=== PATIENT | female | born 1970 | race Caucasian/White ===

== ENCOUNTER → 2016-06-11 | Outpatient (CLI) | payer MEDICARE | END | disposition home or self-care (01) | LOC: PTH.S 12:30 | DX: C50.919 Malignant neoplasm of unspecified site of unspecified female breast (principal); R18.8 Other ascites; Z98.890 Other specified postprocedural states ==

== ENCOUNTER 2016-07-10 10:33 | Day surgery (SDC) | payer MEDICARE ==
[~2016-07-10] VITALS: Ht 162.6 cm; Wt 74.2 kg
--- NOTE | 2016-07-15 11:26 | OR ---
ADMIT: 07/10/2016 RM/LOC: [facility] MR#: [id number] [address] [id number] SILVIO DOWELL [address] [place] [address] Operative/Delivery Room Report SEX: F AGE: 46 : 1970 SURGERY DATE: 07/10/2016 SURGEON: Zack Borjas MD PREOPERATIVE DIAGNOSIS: Intraabdominal mass, question related to the proximal jejunum. POSTOPERATIVE DIAGNOSIS: Normal upper endoscopy. PROCEDURE PERFORMED: EGD (Esophagogastroduodenoscopy). ANESTHESIA: Sedation. ESTIMATED BLOOD LOSS: None. DESCRIPTION OF PROCEDURE: After appropriate informed consent was obtained, the patient was brought to the endoscopy suite. IV sedation was provided. A well-lubricated endoscope was introduced. I ended up using a colonoscope from above just so that I could get far enough down the small bowel to see this area of interest. The arytenoid cartilages, the entire esophageal mucosa appeared normal. She did have just a small hiatal hernia, but no significant reflux changes. No mass or tumor. The gastric mucosa appeared normal throughout. The pylorus was intubated. Duodenal bulb, 2nd, and 3rd portions of the duodenum appeared normal. I did not see any mass or tumor at the area of the ampulla. I was able to drive the scope quite a ways down the jejunum. I was unable to bury the scope so to speak, but I was able to get well past the 4th portion of the duodenum into the proximal jejunum, past the area of interest on her CAT scan. There were no mucosal abnormalities. No obvious mass or tumor. No extrinsic compression on the small bowel. The scope was slowly and carefully withdrawn. Again, the small bowel was inspected. The scope was then pulled back in the stomach, retroflexed revealing just a small sliding type hiatal hernia from below. No proximal gastritis or mass. The stomach was then deflated and the scope withdrawn without apparent complications. The patient tolerated the procedure well and was taken to the recovery room in stable condition. Zack Borjas MD/ emigdio JOB #: [id number] CC: Zakc Borjas, Attending Physician Nichelle Johnson, Family Physician Deniz Infante MD
== END 2016-07-10 13:32 | disposition home or self-care (01) ==
LOC: SSS 10:33
PROC: 0DJ08ZZ Inspection of Upper Intestinal Tract, Via Natural or Artificial Opening Endoscopic (ICD-10-PCS; principal; 2016-07-10)
DX: K44.9 Diaphragmatic hernia without obstruction or gangrene (principal); K21.9 Gastro-esophageal reflux disease without esophagitis; F41.9 Anxiety disorder, unspecified; E03.9 Hypothyroidism, unspecified; F32.9 Major depressive disorder, single episode, unspecified; Z88.8 Allergy status to other drugs, medicaments and biological substances; Z96.659 Presence of unspecified artificial knee joint; Z79.899 Other long term (current) drug therapy; Z98.890 Other specified postprocedural states; Z90.710 Acquired absence of both cervix and uterus